=== PATIENT | female | born 1945 | race Caucasian/White ===

== ENCOUNTER → 2017-01-17 | Outpatient (CLI) | payer MEDICARE, OTHER ==
[2017-01-17 16:50] LABS: INR 1.7 (<1.1); Partial Thromboplastin Time 26.5 sec (22.0-30.0); Prothrombin Time 16.1 sec (9.0-12.0)
== END | disposition home or self-care (01) ==
LOC: LABWHC1 16:12
PROVIDERS: ATTEND Physical Medicine & Rehabilitation
DX: M48.06 Spinal stenosis, lumbar region (principal); M43.16 Spondylolisthesis, lumbar region; M47.817 Spondylosis without myelopathy or radiculopathy, lumbosacral region; M41.26 Other idiopathic scoliosis, lumbar region; R07.81 Pleurodynia; E11.9 Type 2 diabetes mellitus without complications; K21.9 Gastro-esophageal reflux disease without esophagitis; Z96.641 Presence of right artificial hip joint; Z79.01 Long term (current) use of anticoagulants; Z51.81 Encounter for therapeutic drug level monitoring
CPT/HCPCS: 36415; 85610; 85730

== ENCOUNTER → 2017-01-18 | Outpatient (CLI) | payer MEDICARE, OTHER ==
[2017-01-18 11:23] LABS: INR 1.5 (<1.1); Prothrombin Time 14.8 sec (9.0-12.0)
== END | disposition home or self-care (01) ==
LOC: LABWHC1 10:48
PROVIDERS: ATTEND Physical Medicine & Rehabilitation
DX: Z51.81 Encounter for therapeutic drug level monitoring (principal); Z79.01 Long term (current) use of anticoagulants
CPT/HCPCS: 36415; 85610

== ENCOUNTER → 2018-01-05 | Outpatient (CLI) | payer MEDICARE, OTHER ==
[2018-01-05 09:28] LABS: INR 2.6 (<1.2); Partial Thromboplastin Time 31.9 sec (22.0-30.0); Prothrombin Time 23.2 sec (9.0-12.0)
== END | disposition home or self-care (01) ==
LOC: LABWHC1 08:45
PROVIDERS: ATTEND Physical Medicine & Rehabilitation
DX: Z01.812 Encounter for preprocedural laboratory examination (principal); Z51.81 Encounter for therapeutic drug level monitoring; Z79.01 Long term (current) use of anticoagulants
CPT/HCPCS: 36415; 85610; 85730

== ENCOUNTER → 2018-05-05 | Outpatient (CLI) | payer MEDICARE, OTHER ==
[2018-05-05 14:41] LABS: HCT 40.5 % (34.0-46.0); HGB 12.8 gm/dL (11.4-16.0); MCH 28.3 pg (25.0-35.0); MCHC 31.6 g/dL (31.0-37.0); MCV 89.5 fL (80.0-100.0); Mean Platelet Volume 6.8; Platelet Count 293 k/uL (150-450); RBC 4.53 m/uL (3.80-5.40); RDW 13.9 % (11.5-15.5); WBC 6.9 k/uL (3.8-10.6)
[2018-05-05 14:50] LABS: INR 3.7 (<1.2); Partial Thromboplastin Time 39.9 sec (22.0-30.0)
[2018-05-05 15:10] LABS: Anion Gap 8 mmol/L; Blood Urea Nitrogen 9 mg/dL (7-17); Carbon Dioxide 30 mmol/L (22-30); Chloride 102 mmol/L (98-107); Sodium 140 mmol/L (137-145)
[2018-05-05 15:16] LABS: Appearance,Urine Cloudy (Clear); Color,Urine Light Brown; Specific Gravity,Urine 1.035 (1.001-1.035)
[2018-05-05 15:17] LABS: Bilirubin,Urine Negative (Negative); Glucose,Urine (UA) Negative (Negative); Ketones,Urine 2+ (Negative); Protein,Urine Negative (Negative)
[2018-05-05 15:18] LABS: Amorphous Sediment,Urine QNS /hpf; Bacteria,Urine QNS /hpf; Blood,Urine Negative (Negative); Leukocyte Esterase,Urine Large (Negative); Nitrite,Urine Negative (Negative); RBC Clumps, Urine QNS /hpf; RBC,Urine QNS /hpf (0-5); Renal Epithelial Cells,Urine QNS /hpf (0); Squamous Epithelial Cell,Urine QNS /hpf (0-4); Transitional Epi Cells,Urine QNS /hpf (0-1); WBC,Urine QNS /hpf (0-5)
[2018-05-05 15:19] LABS: Mucus,Urine QNS /hpf
== END | disposition home or self-care (01) ==
LOC: LABPAT 14:07
PROVIDERS: ATTEND Orthopaedic Surgery
DX: Z01.812 Encounter for preprocedural laboratory examination (principal)
CPT/HCPCS: 36415; 80051; 81003; 82565; 84520; 85027; 85610; 85730; 86850; 86900; 86901; 87070

== ENCOUNTER → 2018-05-11 | Outpatient (CLI) | payer MEDICARE, OTHER ==
[2018-05-11 07:18] LABS: INR 1.6 (<1.2); Prothrombin Time 14.8 sec (9.0-12.0)
== END | disposition home or self-care (01) ==
LOC: LABWHC1 06:58
PROVIDERS: ATTEND Physical Medicine & Rehabilitation
DX: Z51.81 Encounter for therapeutic drug level monitoring (principal); Z79.01 Long term (current) use of anticoagulants
CPT/HCPCS: 36415; 85610

== ENCOUNTER 2018-05-16 08:42 | Inpatient (IN) | payer MEDICARE, OTHER ==
[2018-05-09 11:12] VITALS: BMI 37.1
[~2018-05-16 08:42] MED LIST: ACETAMINOPHEN TAB 500 MG TAB PO ONE; MELOXICAM 7.5 MG TAB PO ONE; ROPIVACAINE 246.25 MG, EPINEPHrine 0.5 MG, KETOROLAC 30 MG, cloNIDine HCL/PF 80 MCG, WA... MISCELLANE ONE; TRANEXAMIC ACID 1,000 MG in SODIUM CHLORIDE 0.9% 50 ML IVPB ONE; ceFAZolin IN SWFI 2 GM/20 ML SYRINGE IVP ONE
[2018-05-16] MEDS ORDERED: ONDANSETRON 4 MG/2 ML VIAL IVP PRN (09:10)
[2018-05-16] MEDS ORDERED: NALOXONE 0.4 MG/ML 1 ML VIAL IV PRN (09:10)
[2018-05-16] MEDS ORDERED: HYDROcodone/APAP 5-325MG 1 EACH TAB PO PRN (09:10)
[2018-05-16] MEDS ORDERED: HYDROmorphone 1 MG/ML 1 ML SYRINGE IVP PRN ×3 (09:10)
[2018-05-16] MEDS ORDERED: MAGNESIUM HYDROXIDE 2,400 MG/10 ML CUP PO PRN (09:10)
[2018-05-16] MEDS ORDERED: DIAZEPAM 5 MG TAB PO PRN (09:10)
[2018-05-16] MEDS ORDERED: LIDOCAINE 1% 20 ML VIAL (10MG/ML) FOR IV START INTRADERMA ONE (09:39)
[2018-05-16] MEDS ORDERED: LACTATED RINGERS 1,000 ML IV ONE ×3 (09:40→12:51)
[2018-05-16 09:46] LABS: Glucose,Whole Blood 106 mg/dL (75-99)
[2018-05-16 09:55] LABS: INR 1.1 (<1.2); Prothrombin Time 10.7 sec (9.0-12.0)
[2018-05-16] MEDS ORDERED: DEXAMETHASONE SOD PHOS (MDV) 100 MG/10 ML VIAL IVP ONE (09:55)
[2018-05-16] MEDS ORDERED: SODIUM CHLORIDE 0.9% IRRIG 1,000 ML BTL IRRIGATION ONE (10:18)
[2018-05-16] MEDS ORDERED: HEPARIN SODIUM,PORCINE 10,000 UNIT/ML 1 ML VIAL ONE (10:18)
[2018-05-16] MEDS ORDERED: fentaNYL (PF) 50 MCG/ML 2 ML AMP ONE (10:18)
[2018-05-16] MEDS ORDERED: ePHEDrine SULFATE/0.9% NACL/PF 50 MG/5 ML SYRINGE IV ONE (10:18)
[2018-05-16] MEDS ORDERED: TRANEXAMIC ACID 1,000 MG/10 ML VIAL ONE (10:18)
[2018-05-16] MEDS ORDERED: MIDAZOLAM 2 MG/2 ML VIAL ONE (10:18)
[2018-05-16] MEDS ORDERED: PROPOFOL 10 MG/ML 20 ML VIAL IV ONE (10:18)
[2018-05-16] MEDS ORDERED: SODIUM CHLORIDE 0.9% 100 ML BAG ONE (10:18)
[2018-05-16] MEDS ORDERED: ceFAZolin 3,000 MG in SODIUM CHLORIDE 0.9% IRRIGATIO 3,000 ML IRRIGATION ONE (10:53)
--- NOTE | 2018-05-16 13:06 | XR ---
Limited left hip HISTORY: Status post hip arthroplasty Single frontal view of the left hip Small ossific fragment likely related to surgery present medial to the neck of the prosthesis is note d. Lucency present in the soft tissues compatible with postop state. Surgical clips present in the le ft hemipelvis. Patient is status post left hip arthroplasty. There is anatomic alignment. Evidence of prior screw tracks in the proximal left femur. IMPRESSION: Orthopedic follow-up as described.
[2018-05-16 13:41] LABS: Glucose,Whole Blood 176 mg/dL (75-99)
--- NOTE | 2018-05-16 13:50 | P.OP ---
Date of Procedure: 05/16/18 Preoperative Diagnosis: Severe osteoarthritis left hip, status post intramedullary nailing of the left hip Postoperative Diagnosis: Severe osteoarthritis left hip, status post intramedullary nailing of the left hip Procedure(s) Performed: Removal of hardware and left total hip arthroplasty Implants: Osorio and nephew readapt femoral standard offset stem, size 19, one 90 mm length Osorio [employer] Nephew R3, 3 hole acetabular shell, 52 mm [employer]sorio [employer]hew reflection 6.5 mm cancellus screw, 20 mm 2 [employer]hew R3, XLPE 20 acetabular liner Osorio [employer] Nephew Oxinium femoral head 36 m, +8 All components were press-fit. The articulation is Oxinium on polyethylene. Anesthesia: spinal Surgeon: Pritesh Tarango Router Operator Radial #1: Michelle oTrres Estimated Blood Loss (ml): 150 Pathology: other (Femoral head) Condition: stable Disposition: PACU Indications for Procedure: This is a 72-year-old female that has had a prior intramedullary nailing of her left hip for a intertrochanteric hip fracture. She subsequently developed significant arthritis of that hip, and now wishes to have a left total hip arthroplasty performed. It was explained to her that first the hardware must be removed, and then the left total hip arthroplasty could be placed. She is aware of this and informed consent was obtained. Operative Findings: The operative findings are consistent with severe osteoarthritis of the left hip status post intramedullary nailing of the left hip. Description of Procedure: Patient was seen and evaluated in the preoperative area, consent was reviewed, and the surgical site was marked with a skin marker. Patient was then brought to the operating room and given prophylactic antibiotics intravenously. 1 g of Tranexamic acid was also given. A spinal anesthetic was administered by the anesthesia department. The patient was then placed on the operative table and placed in the lateral decubitus position with the bony prominences well-padded. The hip area was then prepped and draped in usual sterile fashion. A universal timeout was then performed, which confirmed the patient's name, surgical site, ALLERGIES, and procedure being performed. Next the incision site was located in the lateral aspect of the hip, centered at the tip of the greater trochanter.. The skin and subcutaneous tissues were sharply incised. Incision was carefully dissected down to the fascia. This fascia was then incised in line with the incision. Next, a Charnley retractor was then placed in the abductors were identified. The anterior one third of the abductors was released off the trochanter and one large sleeve. The anterior hip capsule was then exposed. The capsule was then opened. The proximal femur was then visualized. The hip was then gently dislocated. The superior aspect of the intramedullary dwayne was then located at the tip of the trochanter. Using the appropriate screw the set screw was then removed. The lag screw was then removed from the femoral head. The distal locking screw was then removed through a second small incision distally. Next the entire dwayne was easily removed. The femoral neck was then osteotomized appropriate level above the lesser trochanter. On gross visual inspection, the femoral head had complete loss of articular cartilage and multiple periarticular osteophytes. Attention was then turned to the acetabulum. The acetabulum was exposed and any remaining labrum was excised. Sequential reaming of the acetabulum was performed to a bed of bleeding cancellus bone. When the appropriate size was reached, a trial was then placed. The trial was then removed. Then the final implant was impacted at 20 of anteversion and 40 of abduction, and fully seated in the acetabulum. 2 screws were then placed in the acetabulum. Next, the liner was then impacted, with a 20 elevated liner located in the anterior superior quadrant. Component locking was confirmed. Attention was then directed to the femur. The proximal femur was reexposed. Retractors were then placed. A box osteotome was used to lateralize the proximal femur. A handkerchief folder was then used to locate the femoral canal. Sequential reaming was then performed to a size 19. A trial was then placed with appropriate head and neck, and the hip was gently reduced. The leg lengths were checked and found to be equal. Hip was then taken through full range of motion, was stable throughout. Next, the hip was gently dislocated, and the trials were removed. Final implants were then impacted and the hip was again reduced. The leg lengths were again examined and found to be equal. The hip was also taken through range of motion, and found to be stable. The hip was then copiously irrigated with antibiotic solution with pulsatile lavage. The hip was then irrigated with Irrisept solution. The soft tissues were then injected with ropivacaine solution. A second dose of 1 g of Tranexamic acid was given. The abductors were then repaired with #5 Ethibond suture with drill holes to the bone. The fascia was closed with #2 strata fix suture. The subcutaneous tissue was closed with 3-0 Vicryl. The subcuticular tissue was closed with 30 strata fix suture. The skin was then closed with Dermabond tape. The patient was then transferred to the recovery room in stable condition. The mail handler assistant LARRY Campuzano was required due to the complexity of surgery, and the need for skilled surgical consultant for positioning, draping, exposure, retraction, and closure of the wound.and closure of the wound.
[2018-05-16] MEDS: SODIUM CHLORIDE 0.9% 1,000 ML IV SCH (14:03)
[2018-05-16] MEDS: HYDROcodone/APAP 5-325MG 1 EACH TAB PO PRN ×2 (16:47→22:08)
[2018-05-16] MEDS: ceFAZolin IN SWFI 2 GM/20 ML SYRINGE IVP SCH (16:47)
[2018-05-16 17:09] LABS: Glucose,Whole Blood 230 mg/dL (75-99)
[2018-05-16] MEDS ORDERED: WARFARIN 5 MG TAB PO ONE (18:00)
[2018-05-16] MEDS: INSULIN ASPART 100 UNIT/ML 1 ML 10 ML VIAL SQ SCH ×2 (18:08→22:07)
[2018-05-16 20:56] LABS: Glucose,Whole Blood 239 mg/dL (75-99)
--- NOTE | 2018-05-16 21:33 | P.CONS ---
History of Present Illness - Reason for Consult Consult date: 05/16/18 Medical management of hypertension and other medical problems - Chief Complaint Admitted for elective left hip total arthroplasty - History of Present Illness Patient is a 78-year-old female with a known history of hypertension, diabetes type 2, atrial fibrillation, hyperlipidemia and anxiety/depression was admitted to the hospital for elective left total hip arthroplasty. Currently patient denied any complaints of chest pain or shortness of breath. Denied any hip pain currently. Could not feel lower part of the body due to anesthesia. No complaints of chest pain or shortness of breath. No nausea vomiting. No headache or dizziness or lightheadedness. No fever no chills. Patient is on warfarin for atrial fibrillation and Cardizem for rate control. Patient does have hzk-fbcipel-hpwkqkcgx diabetes type 2. Review of Systems Constitutional: Patient denies any fever or chills . No generalized weakness or weight loss. Abdomen: Patient denied nausea vomiting and diarrhea and abdominal pain. Cardiovascular: Patient denies any chest pain or short of breath no palpitations. Respiratory: patient denied any cough is from production. No shortness of breath Neurologic: Patient denied any numbness or tingling headache. Musculoskeletal: Patient denies any complaints of joint swelling or deformity. Skin: Negative Psychiatric: Negative Endocrine: No heat or cold intolerance. No recent weight gain. Genitourinary: No dysuria or hematuria. All other 14 point ROS negative except the above Past Medical History Past Medical History: Atrial Fibrillation, Diabetes Mellitus, Hyperlipidemia, Hypertension Additional Past Medical History / Comment(s): KIDNEY STONES, CHRONIC BACK PAIN, SLEEP APNEA, FRACTURE LEFT ARM History of Any Multi-Drug Resistant Organisms: None Reported Past Surgical History: Bariatric Surgery, Hysterectomy, Orthopedic Surgery Additional Past Surgical History / Comment(s): RIGHT HIP, URETHRA RECONSTRUCTION Past Anesthesia/Blood Transfusion Reactions: Previous Problems w/ Anesthesia Additional Past Anesthesia/Blood Transfusion Reaction / Comm: HAD NIGHTMARES AFTER HIP SX 10 MONTHS AGO Past Psychological History: Anxiety, Depression Smoking Status: Never smoker Past Alcohol Use History: None Reported Past Drug Use History: None Reported - Past Family History Mother Family Medical History: Hypertension Father Family Medical History: Cancer Sister(s) Family Medical History: Cancer Brother(s) Family Medical History: Cancer Medications and Allergies Home Medications Medication Instructions Recorded Confirmed Type ALPRAZolam [Xanax] 0.25 mg PO Q8H PRN 02/22/16 05/16/18 History Alendronate Sodium [Fosamax] 70 mg PO WESTON 02/22/16 05/16/18 History Furosemide [Lasix] 40 mg PO DAILY 02/22/16 05/16/18 History Gabapentin [Neurontin] 200 mg PO HS 02/22/16 05/16/18 History HYDROcodone/APAP 7.5-325MG [[place] 1 tab PO Q6HR PRN 02/22/16 05/16/18 History 7.5-325] Oxybutynin Chloride [Ditropan] 10 mg PO BID 02/22/16 05/16/18 History Potassium Chloride [Klor-Con 10] 10 meq PO DAILY 02/22/16 05/16/18 History Simvastatin [Zocor] 40 mg PO HS 02/22/16 05/16/18 History metFORMIN HCL [Glucophage] 1,000 mg PO BID 02/22/16 05/16/18 History Enalapril [Vasotec] 40 mg PO HS #60 tab 02/23/16 05/16/18 Rx Diltiazem HCl [Cardizem Cd] 120 mg PO Q24HR 05/09/18 05/16/18 History Mirabegron [Myrbetriq] 25 mg PO DAILY 05/09/18 05/16/18 History Warfarin Sodium [Coumadin] 2 mg PO DAILY 05/09/18 05/16/18 History FLUoxetine HCL [PROzac] 40 mg PO DAILY 05/16/18 05/16/18 History Allergies Allergy/AdvReac Type Severity Reaction Status Date / Time adhesive tape Allergy Itching Verified 05/16/18 14:03 latex Allergy Itching Verified 05/16/18 14:03 BAND-AIDS Allergy Itching Uncoded 05/16/18 09:02 Physical Exam Vitals: Vital Signs Temp Pulse Resp BP Pulse Ox 05/16/18 13:15 45 L 16 117/56 93 L 05/16/18 13:00 43 L 18 105/46 92 L 05/16/18 12:45 54 L 16 116/58 95 05/16/18 12:37 97.1 F L 52 L 16 123/56 96 05/16/18 09:09 98.3 F 60 20 133/66 97 Intake and Output 05/16/18 05/16/1818 06:59 14:59 22:59 Intake Total 1901 Output Total 150 Balance 1751 Intake: IV 1901 Output: Estimated Blood Loss 150 Other: Weight 104.326 kg PHYSICAL EXAMINATION: Patient is lying in the bed comfortably, no acute distress, awake alert and oriented.. HEENT: Normocephalic. Neck is supple. Pupils reactive. Nostrils clear. Oral cavity is moist. Ears reveal no drainage. Neck reveals no JVD, carotid bruits, or thyromegaly. CHEST EXAMINATION: Trachea is central. Symmetrical expansion. Lung canseco clear to auscultation and percussion. CARDIAC: Normal S1, S2 with no gallops. No murmurs ABDOMEN: Soft. Bowel sounds normal. No organomegaly. No abdominal bruits. Extremities: reveal no edema. No clubbing or cyanosis Neurologically awake, alert, oriented x3 with well-coordinated movements. No focal deficits noted Skin: No rash or skin lesions. Psychiatric: Coperative. Nonsuicidal Musculoskeletal: No joint swelling or deformity. Normal range of motion. Results Labs: Abnormal Lab Results - Last 24 Hours (Table) 05/16/18 05/16/18 Range/Units 09:33 13:39 POC Glucose (mg/dL) 106 H 176 H (75-99) mg/dL Assessment and Plan Assessment: Status post left hip total arthroplasty on 05/16/2018 Hypertension. Currently hypotensive. Blood pressure medications will be held at this time. Diabetes type 2. On metformin at home. Continue with insulin sliding scale while in the hospital. Paroxysmal atrial fibrillation. On anticoagulation with warfarin. Restarted after surgery. Hyperlipidemia Chronic back pain Obstructive sleep apnea Anxiety/depression DVT prophylaxis Plan: Patient will be continued on pain management and bowel regimen and DVT prophylaxis. Continue with warfarin dosing. Patient will be started on Cardizem CD tomorrow if the blood pressure is stable. Heart rate is controlled otherwise. We will hold lisinopril due to hypotension. Continue with insulin sliding scale and follow up closely. Will follow up CBC and BMP in tomorrows labs. Encourage incentive spirometry. We will follow up closely and further recommendations based on the clinical course. Thank you for your consult Time with Patient: Greater than 30
[2018-05-16] MEDS: hydrOXYzine PAMOATE 25 MG CAP PO PRN (22:08)
[2018-05-16] MEDS: SENNOSIDES-DOCUSATE SODIUM 1 EACH TAB PO SCH (22:08)
[2018-05-17] MEDS: SODIUM CHLORIDE 0.9% 1,000 ML IV SCH ×2 (00:57→18:00)
[2018-05-17] MEDS: ceFAZolin IN SWFI 2 GM/20 ML SYRINGE IVP SCH (00:59)
[2018-05-17] MEDS: hydrOXYzine PAMOATE 25 MG CAP PO PRN ×2 (03:33→10:07)
[2018-05-17] MEDS: HYDROcodone/APAP 5-325MG 1 EACH TAB PO PRN ×4 (03:34→22:52)
[2018-05-17 07:23] LABS: Glucose,Whole Blood 149 mg/dL (75-99)
[2018-05-17] MEDS: FLUoxetine HCL 20 MG CAP PO SCH (08:01)
[2018-05-17] MEDS: INSULIN ASPART 100 UNIT/ML 1 ML 10 ML VIAL SQ SCH ×4 (08:01→21:26)
[2018-05-17] MEDS: DILTIAZEM CD 120 MG CAP.ER.24H PO SCH (08:02)
[2018-05-17] MEDS: OXYBUTYNIN 10 MG TAB.ER.24 PO SCH ×2 (08:02→21:26)
[2018-05-17 08:05] LABS: Anion Gap 6 mmol/L; Blood Urea Nitrogen 13 mg/dL (7-17); Calcium 8.9 mg/dL (8.4-10.2); Carbon Dioxide 29 mmol/L (22-30); Chloride 105 mmol/L (98-107); Glucose 129 mg/dL (74-99); INR 1.2 (<1.2); Potassium 4.8 mmol/L (3.5-5.1); Prothrombin Time 11.3 sec (9.0-12.0); Sodium 140 mmol/L (137-145)
[2018-05-17 08:16] LABS: Basophils % (A) 0 %; Eosinophils % (A) 0 %; HCT 32.6 % (34.0-46.0); HGB 10.4 gm/dL (11.4-16.0); Hypochromasia Slight; Lymphocytes # (A) 0.9 k/uL (1.0-4.8); Lymphocytes % (A) 7 %; MCH 28.7 pg (25.0-35.0); MCHC 31.8 g/dL (31.0-37.0); MCV 90.3 fL (80.0-100.0); Mean Platelet Volume 6.6; Monocytes # (A) 0.6 k/uL (0-1.0); Monocytes % (A) 4 %; Neutrophils # (A) 11.6 k/uL (1.3-7.7); Neutrophils % (A) 88 %; Platelet Count 184 k/uL (150-450); RBC 3.61 m/uL (3.80-5.40); RDW 14.2 % (11.5-15.5); WBC 13.2 k/uL (3.8-10.6)
--- NOTE | 2018-05-17 08:51 | P.PN ---
Subjective Progress Note Date: 05/17/18 This is a 73-year-old female who is status post removal of hardware and a left total hip arthroplasty. This is postoperative day #1. Patient is seen and evaluated at bedside with Dr. Pritesh Tarango. Patient states that her left hip is sore, but overall she is doing well. Patient states that she has been up and out of bed. Patient denies any fever/chills, numbness, weakness, tingling, abdominal pain, shortness of breath or chest pain. Objective - Vital Signs Vital signs: Vital Signs Temp 98 F 05/17/18 08:00 Pulse 55 L 05/17/18 08:00 Resp 16 05/17/18 08:00 BP 115/76 05/17/18 08:00 Pulse Ox 95 05/17/18 08:00 Intake & Output 05/16/18 05/17/18 05/17/18 18:59 06:59 18:59 Intake Total 2441 520 Output Total 150 Balance 2291 520 Weight 104.326 kg Intake: IV 1901 Intake, IV Titration 520 Amount Sodium Chloride 0.9% 1, 520 000 ml @ 65 mls/hr IV . [id number] [facility] Rx#:[id number] Oral 540 Output: Estimated Blood Loss 150 Other: # Voids 4 - Exam Vital signs are stable. Patient is in no acute distress and is alert and oriented 3. Calf is soft and nontender to palpation. Dressing is clean, dry, and intact. Patient has full foot and ankle motion without pain or difficulty. Neurovascular status and circulatory status are intact. - Labs CBC & Chem 7: 05/17/18 07:20 05/17/18 07:20 Labs: Abnormal Lab Results - Last 24 Hours (Table) 05/16/18 05/16/18 05/16/18 Range/Units 09:33 13:39 17:06 WBC (3.8-10.6) k/uL RBC (3.80-5.40) m/uL Hgb (11.4-16.0) gm/dL Hct (34.0-46.0) % INR (<1.2) Glucose (74-99) mg/dL POC Glucose (mg/dL) 106 H 176 H 230 H (75-99) mg/dL 05/16/18 05/17/18 05/17/18 Range/Units 20:54 07:13 07:20 WBC 13.2 H (3.8-10.6) k/uL RBC 3.61 L (3.80-5.40) m/uL Hgb 10.4 L (11.4-16.0) gm/dL Hct 32.6 L (34.0-46.0) % INR (<1.2) Glucose (74-99) mg/dL POC Glucose (mg/dL) 239 H 149 H (75-99) mg/dL 05/17/18 05/17/18 Range/Units 07:20 07:20 WBC (3.8-10.6) k/uL RBC (3.80-5.40) m/uL Hgb (11.4-16.0) gm/dL Hct (34.0-46.0) % INR 1.2 H (<1.2) Glucose 129 H (74-99) mg/dL POC Glucose (mg/dL) (75-99) mg/dL Assessment and Plan (1) Osteoarthritis of left hip Current Visit: Yes Status: Acute Code(s): M16.12 - UNILATERAL PRIMARY OSTEOARTHRITIS, LEFT HIP SNOMED Code(s): 113014233139283 (2) Status post total hip replacement, left Current Visit: Yes Status: Acute Code(s): Z96.642 - PRESENCE OF LEFT ARTIFICIAL HIP JOINT SNOMED Code(s): 588447021160 Plan: Continue routine postop care. Continue hip precautions with abductor pillow. Continue antocoagulation with Coumadin. Weightbearing as tolerated with a walker Leave dressing in place for 10 days. Possible discharge home tomorrow.
[2018-05-17 09:06] LABS: Poikilocytosis (M) Present
[2018-05-17 11:20] LABS: Glucose,Whole Blood 129 mg/dL (75-99)
[2018-05-17 17:27] LABS: Glucose,Whole Blood 297 mg/dL (75-99)
[2018-05-17] MEDS ORDERED: WARFARIN 5 MG TAB PO ONE (18:00)
[2018-05-17 19:31] LABS: Hemoglobin A1C 6.2 % (4.0-6.0)
[2018-05-17 20:08] LABS: Glucose,Whole Blood 148 mg/dL (75-99)
[2018-05-17] MEDS ORDERED: ATORVASTATIN 20 MG TAB PO SCH (21:00)
[2018-05-17] MEDS: SENNOSIDES-DOCUSATE SODIUM 1 EACH TAB PO SCH (21:26)
[2018-05-18 01:16] VITALS: RESP 16
[2018-05-18 07:14] LABS: Glucose,Whole Blood 90 mg/dL (75-99)
[2018-05-18 07:28] LABS: INR 1.5 (<1.2); Prothrombin Time 13.6 sec (9.0-12.0)
--- NOTE | 2018-05-18 08:06 | P.DS ---
Providers Date of admission: 05/16/18 08:42 Expected date of discharge: 05/18/18 Attending physician: Pritesh Tarango Consults: 05/16/18 09:10 Consult Physician Routine Consulting Provider: Benito Celestin Consult Reason/Comments: medical management and anticoagulation Do you want consulting provider notified?: Yes Primary care physician: Yrn Mendoza - Discharge Diagnosis(es) (1) Osteoarthritis of left hip Current Visit: Yes Status: Acute (2) Status post total hip replacement, left Current Visit: Yes Status: Acute Hospital Course: This is a 73-year-old female witha known history of degenerative arthritis of the left hip and a history of intramedullary nailing of the left hip. The patient presents for evaluation. After discussion and consideration patient elects to proceed with removal of hardware and left total hip arthroplasty. The patient is seen preoperatively by Dr. Tarango and medically cleared for surgery by their primary care physician. Patient is admitted to [facility] on 05/16/2018 for removal of hardware and left total hip arthroplasty. The procedures performed without complication or sequelae. The patient is doing well postoperatively. Labs and vital signs are stable on day of discharge. On day of discharge patient's hip incision is healing well. There is minimal erythema. There is no drainage noted at this time. There is minimal soft tissue swelling to the hip and thigh. Patient has full foot and ankle motion without difficulty or pain. Neurovascular status to the left lower extremity is intact. Patient is discharged home in good condition. Please see med rec for accurate list of home medications. Plan - Discharge Summary Discharge Rx Participant: Yes New Discharge Prescriptions: New HYDROcodone/APAP 5-325MG [[place] 5-325] 1 - 2 tab PO Q4-6H PRN #84 tab PRN Reason: Pain Sennosides [Senokot] 1 tab PO BID #60 tablet No Action Simvastatin [Zocor] 40 mg PO HS Oxybutynin Chloride [Ditropan] 10 mg PO BID HYDROcodone/APAP 7.5-325MG [[place] 7.5-325] 1 tab PO Q6HR PRN PRN Reason: Pain metFORMIN HCL [Glucophage] 1,000 mg PO BID Furosemide [Lasix] 40 mg PO DAILY ALPRAZolam [Xanax] 0.25 mg PO Q8H PRN PRN Reason: Anxiety Potassium Chloride [Klor-Con 10] 10 meq PO DAILY Gabapentin [Neurontin] 200 mg PO HS Alendronate Sodium [Fosamax] 70 mg PO WESTON Enalapril [Vasotec] 40 mg PO HS #60 tab Mirabegron [Myrbetriq] 25 mg PO DAILY Diltiazem HCl [Cardizem Cd] 120 mg PO Q24HR Warfarin Sodium [Coumadin] 2 mg PO DAILY FLUoxetine HCL [PROzac] 40 mg PO DAILY Discharge Medication List ALPRAZolam [Xanax] 0.25 mg PO Q8H PRN 02/22/16 [History] Alendronate Sodium [Fosamax] 70 mg PO WESTON 02/22/16 [History] Furosemide [Lasix] 40 mg PO DAILY 02/22/16 [History] Gabapentin [Neurontin] 200 mg PO HS 02/22/16 [History] HYDROcodone/APAP 7.5-325MG [[place] 7.5-325] 1 tab PO Q6HR PRN 02/22/16 [History] Oxybutynin Chloride [Ditropan] 10 mg PO BID 02/22/16 [History] Potassium Chloride [Klor-Con 10] 10 meq PO DAILY 02/22/16 [History] Simvastatin [Zocor] 40 mg PO HS 02/22/16 [History] metFORMIN HCL [Glucophage] 1,000 mg PO BID 02/22/16 [History] Enalapril [Vasotec] 40 mg PO HS #60 tab 02/23/16 [Rx] Diltiazem HCl [Cardizem Cd] 120 mg PO Q24HR 05/09/18 [History] Mirabegron [Myrbetriq] 25 mg PO DAILY 05/09/18 [History] Warfarin Sodium [Coumadin] 2 mg PO DAILY 05/09/18 [History] FLUoxetine HCL [PROzac] 40 mg PO DAILY 05/16/18 [History] HYDROcodone/APAP 5-325MG [[place] 5-325] 1 - 2 tab PO Q4-6H PRN #84 tab 05/18/18 [ Rx] Sennosides [Senokot] 1 tab PO BID #60 tablet 05/18/18 [Rx] Follow up Appointment(s)/Referral(s): Pritesh Tarango DO [Doctor of Osteopathic Medicine] - 05/31/18 1:00 pm [facility] Visiting Nurse, [NON-STAFF] - Activity/Diet/Wound Care/Special Instructions: Weightbearing as tolerated with walker Leave dressing intact. Dressing may be removed by home care nurse in 10 days. May shower with dressing on. Continue use of abductor pillow for 6 weeks. Discharge post-op anticoagulation per internal medicine. Follow-up with [facility] in 2 weeks, please call with any questions or concerns [phone] Discharge Disposition: HOME WITH HOME HEALTH SERVICES
[2018-05-18] MEDS: hydrOXYzine PAMOATE 25 MG CAP PO PRN (08:26)
[2018-05-18] MEDS: HYDROcodone/APAP 5-325MG 1 EACH TAB PO PRN (08:26)
[2018-05-18] MEDS: DILTIAZEM CD 120 MG CAP.ER.24H PO SCH (08:27)
[2018-05-18] MEDS: OXYBUTYNIN 10 MG TAB.ER.24 PO SCH (08:27)
[2018-05-18] MEDS: FLUoxetine HCL 20 MG CAP PO SCH (08:27)
[2018-05-18] MEDS: INSULIN ASPART 100 UNIT/ML 1 ML 10 ML VIAL SQ SCH (08:27)
[2018-05-18 08:34] VITALS: BP 124/64; PULSE 64; TEMP 99
[2018-05-18 12:06] LABS: Glucose,Whole Blood 108 mg/dL (75-99)
[2018-05-18] MEDS ORDERED: WARFARIN 5 MG TAB PO ONE (18:00)
--- NOTE | 2018-05-18 22:22 | P.PN ---
Subjective Progress Note Date: 05/17/18 Principal diagnosis: Left hip total arthroplasty Patient is a 78-year-old female with a known history of hypertension, diabetes type 2, atrial fibrillation, hyperlipidemia and anxiety/depression was admitted to the hospital for elective left total hip arthroplasty. Currently patient denied any complaints of chest pain or shortness of breath. Denied any hip pain currently. Could not feel lower part of the body due to anesthesia. No complaints of chest pain or shortness of breath. No nausea vomiting. No headache or dizziness or lightheadedness. No fever no chills. Patient is on warfarin for atrial fibrillation and Cardizem for rate control. Patient does have ymp-rfvnapq-siovkhahl diabetes type 2. 05/17/2018 Patient denied any complaints of chest pain or shortness of breath. Patient is participant in physical therapy. No nausea vomiting or abdominal pain. started on warfarin. Continue with the Coumadin monitoring. No other acute overnight issues. No chest pain or shortness of breath. Current medications reviewed. Objective - Vital Signs Vital signs: Vital Signs Temp 98.3 F 05/17/18 19:27 Pulse 55 L 05/17/18 19:27 Resp 14 05/17/18 19:27 BP 119/70 05/17/18 19:27 Pulse Ox 96 05/17/18 19:27 Intake & Output 05/17/18 05/17/18 05/18/18 06:59 18:59 06:59 Intake Total 520 372 Balance 520 372 Intake: Intake, IV Titration 520 Amount Sodium Chloride 0.9% 1, 520 000 ml @ 65 mls/hr IV . [id number] [facility] Rx#:[id number] Oral 372 Other: Voiding Method Toilet # Voids 4 2 1 - Exam PHYSICAL EXAMINATION: Patient is lying in the bed comfortably, no acute distress, awake alert and oriented.. HEENT: Normocephalic. Neck is supple. Pupils reactive. Nostrils clear. Oral cavity is moist. Ears reveal no drainage. Neck reveals no JVD, carotid bruits, or thyromegaly. CHEST EXAMINATION: Trachea is central. Symmetrical expansion. Lung canseco clear to auscultation and percussion. CARDIAC: Normal S1, S2 with no gallops. No murmurs ABDOMEN: Soft. Bowel sounds normal. No organomegaly. No abdominal bruits. Extremities: reveal no edema. No clubbing or cyanosis Neurologically awake, alert, oriented x3 with well-coordinated movements. No focal deficits noted Skin: No rash or skin lesions. Psychiatric: Coperative. Nonsuicidal Musculoskeletal: No joint swelling or deformity. Normal range of motion. - Labs CBC & Chem 7: 05/17/18 07:20 05/17/18 07:20 Labs: Abnormal Lab Results - Last 24 Hours (Table) 05/17/18 05/17/18 05/17/18 Range/Units 07:13 07:20 07:20 WBC 13.2 H (3.8-10.6) k/uL RBC 3.61 L (3.80-5.40) m/uL Hgb 10.4 L (11.4-16.0) gm/dL Hct 32.6 L (34.0-46.0) % Neutrophils # 11.6 H (1.3-7.7) k/uL Lymphocytes # 0.9 L (1.0-4.8) k/uL INR (<1.2) Glucose (74-99) mg/dL POC Glucose (mg/dL) 149 H (75-99) mg/dL Hemoglobin A1c 6.2 H (4.0-6.0) % 05/17/18 05/17/18 05/17/18 Range/Units 07:20 07:20 11:19 WBC (3.8-10.6) k/uL RBC (3.80-5.40) m/uL Hgb (11.4-16.0) gm/dL Hct (34.0-46.0) % Neutrophils # (1.3-7.7) k/uL Lymphocytes # (1.0-4.8) k/uL INR 1.2 H (<1.2) Glucose 129 H (74-99) mg/dL POC Glucose (mg/dL) 129 H (75-99) mg/dL Hemoglobin A1c (4.0-6.0) % 05/17/18 05/17/18 Range/Units 17:25 20:06 WBC (3.8-10.6) k/uL RBC (3.80-5.40) m/uL Hgb (11.4-16.0) gm/dL Hct (34.0-46.0) % Neutrophils # (1.3-7.7) k/uL Lymphocytes # (1.0-4.8) k/uL INR (<1.2) Glucose (74-99) mg/dL POC Glucose (mg/dL) 297 H 148 H (75-99) mg/dL Hemoglobin A1c (4.0-6.0) % Assessment and Plan Assessment: Status post left hip total arthroplasty on 05/16/2018 Hypertension. Currently hypotensive. Blood pressure medications will be held at this time. Diabetes type 2. On metformin at home. Continue with insulin sliding scale while in the hospital. Paroxysmal atrial fibrillation. On anticoagulation with warfarin. Restarted after surgery. Hyperlipidemia Chronic back pain Obstructive sleep apnea Anxiety/depression DVT prophylaxis Plan: Patient will be continued on pain management and bowel regimen and DVT prophylaxis. Continue with warfarin dosing. Patient was started on Cardizem CD. Heart rate is controlled otherwise. We will hold lisinopril due to hypotension. Continue with insulin sliding scale and follow up closely. Will follow up CBC and BMP in tomorrows labs. Encourage incentive spirometry. We will follow up closely and further recommendations based on the clinical course. Thank you for your consult Time with Patient: Greater than 30
--- NOTE | 2018-05-18 22:24 | P.PN ---
Subjective Progress Note Date: 05/18/18 Principal diagnosis: Left hip total arthroplasty Patient is a 78-year-old female with a known history of hypertension, diabetes type 2, atrial fibrillation, hyperlipidemia and anxiety/depression was admitted to the hospital for elective left total hip arthroplasty. Currently patient denied any complaints of chest pain or shortness of breath. Denied any hip pain currently. Could not feel lower part of the body due to anesthesia. No complaints of chest pain or shortness of breath. No nausea vomiting. No headache or dizziness or lightheadedness. No fever no chills. Patient is on warfarin for atrial fibrillation and Cardizem for rate control. Patient does have [id number] diabetes type 2. 05/17/2018 Patient denied any complaints of chest pain or shortness of breath. Patient is participant in physical therapy. No nausea vomiting or abdominal pain. started on warfarin. Continue with the Coumadin monitoring. No other acute overnight issues. No chest pain or shortness of breath. 05/18/2018 Patient denied any new complaints today. Patient is being discharged home today. Blood pressure is fairly controlled. Recommended to follow with primary care physician. No chest pain or shortness of breath. No acute overnight issues. Current medications reviewed. Objective - Vital Signs Vital signs: Vital Signs Temp 99 F 05/18/18 08:33 Pulse 64 05/18/18 08:33 Resp 16 05/18/18 08:33 BP 124/64 05/18/18 08:33 Pulse Ox 99 05/18/18 08:33 Intake & Output 05/18/18 05/18/18 05/19/18 06:59 18:59 06:59 Intake Total 522 380 Balance 522 380 Intake: Oral 522 380 Other: Voiding Method Toilet # Voids 1 - Exam PHYSICAL EXAMINATION: Patient is lying in the bed comfortably, no acute distress, awake alert and oriented.. HEENT: Normocephalic. Neck is supple. Pupils reactive. Nostrils clear. Oral cavity is moist. Ears reveal no drainage. Neck reveals no JVD, carotid bruits, or thyromegaly. CHEST EXAMINATION: Trachea is central. Symmetrical expansion. Lung canseco clear to auscultation and percussion. CARDIAC: Normal S1, S2 with no gallops. No murmurs ABDOMEN: Soft. Bowel sounds normal. No organomegaly. No abdominal bruits. Extremities: reveal no edema. No clubbing or cyanosis Neurologically awake, alert, oriented x3 with well-coordinated movements. No focal deficits noted Skin: No rash or skin lesions. Psychiatric: Coperative. Nonsuicidal Musculoskeletal: No joint swelling or deformity. Normal range of motion. - Labs CBC & Chem 7: 05/17/18 07:20 05/17/18 07:20 Labs: Abnormal Lab Results - Last 24 Hours (Table) 05/18/18 05/18/18 Range/Units 06:29 12:05 PT 13.6 H (9.0-12.0) sec INR 1.5 H (<1.2) POC Glucose (mg/dL) 108 H (75-99) mg/dL Assessment and Plan Assessment: Status post left hip total arthroplasty on 05/16/2018 Hypertension. controlled. Diabetes type 2. On metformin at home. Continue with insulin sliding scale while in the hospital. Paroxysmal atrial fibrillation. On anticoagulation with warfarin. Restarted after surgery. Continue with Cardizem CD. Hyperlipidemia Chronic back pain Obstructive sleep apnea Anxiety/depression DVT prophylaxis Plan: Patient will be continued on pain management and bowel regimen and DVT prophylaxis. Continue with warfarin dosing. Patient was started on Cardizem CD. Heart rate is controlled otherwise. We will hold lisinopril due to hypotension. Continue with insulin sliding scale and follow up closely. Encourage incentive spirometry. We will follow up closely and further recommendations based on the clinical course. Patient is being discharged today. Time with Patient: Greater than 30
== END 2018-05-18 12:35 | disposition home health service (06) | DRG 470 ==
LOC: 2ORMAIN 08:42 → 3SUR 13:32
PROVIDERS: ADMIT Orthopaedic Surgery; ATTEND Orthopaedic Surgery
PROC: 0SPB04Z Removal of Internal Fixation Device from Left Hip Joint, Open Approach (ICD-10-PCS; 2018-05-16)
PROC: 0SRB06A Replacement of Left Hip Joint with Oxidized Zirconium on Polyethylene Synthetic Substitute, Uncemented, Open Approach (ICD-10-PCS; principal; 2018-05-16 10:45)
DX: M16.12 Unilateral primary osteoarthritis, left hip (principal); I95.9 Hypotension, unspecified; E11.9 Type 2 diabetes mellitus without complications; I48.2 Chronic atrial fibrillation; E78.2 Mixed hyperlipidemia; I10 Essential (primary) hypertension; G47.33 Obstructive sleep apnea (adult) (pediatric); F32.9 Major depressive disorder, single episode, unspecified; F41.9 Anxiety disorder, unspecified; G89.29 Other chronic pain; M54.9 Dorsalgia, unspecified; Z79.83 Long term (current) use of bisphosphonates; Z79.01 Long term (current) use of anticoagulants; Z79.84 Long term (current) use of oral hypoglycemic drugs; Z79.899 Other long term (current) drug therapy; Z87.442 Personal history of urinary calculi; Z98.84 Bariatric surgery status; Z98.51 Tubal ligation status; Z90.710 Acquired absence of both cervix and uterus; Z91.040 Latex allergy status; Z88.7 Allergy status to serum and vaccine; Z91.048 Other nonmedicinal substance allergy status; Z82.49 Family history of ischemic heart disease and other diseases of the circulatory system; Z80.9 Family history of malignant neoplasm, unspecified
CPT/HCPCS: 73501; 80048; 83036; 85025; 85610; 86850; 86891; 86900; 86901; 88300

== ENCOUNTER → 2018-09-15 | Outpatient (CLI) | payer MEDICARE, OTHER ==
--- NOTE | 2018-09-15 17:23 | MR ---
EXAMINATION TYPE: MR lumbar spine wo con DATE OF EXAM: 09/15/2018 COMPARISON: 06/09/2011 HISTORY: Spondylolisthesis, lumbar region CONTRAST: 0 mL intravenous Gadavist. TECHNIQUE: Multiplanar, multisequence images of the lumbar spine were acquired. FINDINGS: There is a stable compression deformity at L3 with mild posterior wall displacement. Thi s is estimated at 4 mm and has moderate anterior thecal sac impression. Facet hypertrophy with ligame ntum flavum laxity are present at this same level contributing to spinal canal stenosis. L5-S1: There is narrowing of disc height. Broad-based central disc bulge is present with moderate imp ression on the epidural space. Some thecal sac contact is present. Facet hypertrophy is present on th e right. Findings have worsened slightly over the interval. L4-L5: Broad-based disc bulge is anterior thecal sac flattening. Facet hypertrophy is present with po sterior lateral thecal sac compression. No spinal canal stenosis is present. Neural foramen are paten t. L3-L4: No focal disc herniation or significant disc bulge is evident. No spinal canal stenosis is pre sent. There is facet hypertrophy with ligamentum flavum laxity slightly greater on the left with post erior lateral thecal sac compression. L2-L3: Superior endplate central protrusion is estimated at 4 mm and has moderate to large degree of anterior thecal sac compression. This is stable from the comparison study. There is increasing ligame ntum flavum laxity with posterior lateral thecal sac compression contributing to AP spinal canal sten osis. There is mild bilateral foraminal narrowing. L1-L2: Cord terminates at the L1 level. No significant disc bulge or focal disc herniation is evident . No spinal canal stenosis or neural foraminal stenosis is present. T12-L1: No significant disc bulge or disc herniation. No spinal canal stenosis. No foraminal stenos is. IMPRESSION: 1. Stable superior endplate compression deformity of L3 with 4 mm posterior wall displacement. 2. There is increasing ligamentum flavum laxity at the L2-3 level contributing to spinal canal stenos is, which is increased from the comparison study of 2010. 3. Large central disc protrusion L5-S1 has slightly increased impression on the thecal sac without st enosis.
== END | disposition home or self-care (01) ==
LOC: RADMRIMAIN 11:53
PROVIDERS: ATTEND Physical Medicine & Rehabilitation
DX: M48.062 Spinal stenosis, lumbar region with neurogenic claudication (principal); M51.17 Intervertebral disc disorders with radiculopathy, lumbosacral region; M51.06 Intervertebral disc disorders with myelopathy, lumbar region; M41.26 Other idiopathic scoliosis, lumbar region; R07.81 Pleurodynia; E11.9 Type 2 diabetes mellitus without complications; E78.5 Hyperlipidemia, unspecified; I48.91 Unspecified atrial fibrillation; I10 Essential (primary) hypertension; Z98.84 Bariatric surgery status; Z79.01 Long term (current) use of anticoagulants; Z96.641 Presence of right artificial hip joint
CPT/HCPCS: 72148

== ENCOUNTER → 2019-01-15 | Outpatient (CLI) | payer MEDICARE, OTHER ==
--- NOTE | 2019-01-15 14:41 | NM ---
EXAMINATION TYPE: NM bone scan whole body DATE OF EXAM: 01/15/2019 COMPARISON: 05/20/2014 HISTORY: Back pain Delayed whole-body scanning was performed following the injection of 24.3 mCi Tc 99m MDP. Images acq uired 3 hours post injection. FINDINGS: There is mild left hydronephrosis and severe right-sided hydronephrosis Abnormal uptake involving the knees, shoulders and feet likely arthritic. Photopenic defects involving the hips bilaterally suggestive There is a curvature the spine with faint uptake involving the mid and lower lumbar spine likely dege nerative. There is intense area of abnormal uptake involving the bilateral anterior approximate 10th rib likely in the basis of previous trauma. There is an intense area of abnormal uptake in the midthoracic spine which is somewhat linear in morp hology suggestive of possible compression fracture. IMPRESSION: 1. Abnormal uptake midthoracic spine is a linear intense pattern and can be associated with compressi on fracture recommend x-ray correlation. 2. Severe right hydronephrosis and mild left hydronephrosis. 3. Uptake involving the anterior left rib cage suggestive of previous fracture. Moderate uptake invol ving the anterior 10th rib on the right suggest previous fracture.
== END | disposition home or self-care (01) ==
LOC: RADNMMAIN 11:09
PROVIDERS: ATTEND Physical Medicine & Rehabilitation
DX: R93.7 Abnormal findings on diagnostic imaging of other parts of musculoskeletal system (principal); N13.30 Unspecified hydronephrosis; E11.9 Type 2 diabetes mellitus without complications; E78.5 Hyperlipidemia, unspecified; I10 Essential (primary) hypertension; M54.16 Radiculopathy, lumbar region
CPT/HCPCS: 78306; A9503